=== PATIENT | male | born 1960 | race Caucasian/White ===

== ENCOUNTER 2020-02-20 09:31 | Outpatient (NON) | payer OTHER, SELFPAY ==
[2020-02-20 17:45] LABS: SARS-CoV-2 RNA PCR Negative
== END 2020-02-20 09:32 ==
PROVIDERS: PCP Family Medicine; Visit Provider Family Medicine
DX: Z20.828 Contact with and (suspected) exposure to other viral communicable diseases (principal); M79.10 Myalgia, unspecified site
CPT/HCPCS: 87635; C9803; U0003

== ENCOUNTER → 2020-12-14 05:11 | Outpatient (CLI) | payer OTHER, SELFPAY ==
[2020-12-14 21:10] LABS: SARS-CoV-2 RNA PCR Negative
== END ==
PROVIDERS: PCP Family Medicine; Visit Provider Family Medicine
DX: R68.89 Other general symptoms and signs (principal); Z20.822 Contact with and (suspected) exposure to COVID-19
CPT/HCPCS: C9803; U0003; U0005

== ENCOUNTER 2021-11-14 13:39 | Outpatient (RCR) | payer OTHER, SELFPAY ==
[2021-11-14] MEDS: FAMOTIDINE 20 MG TABLET PO (14:10)
[2021-11-14] MEDS: diphenhydrAMINE HCl CAP 25 MG CAPSULE PO (14:10)
[2021-11-14] MEDS: ACETAMINOPHEN 325 MG TABLET 650 MG PO (14:10)
[2021-11-14 14:13] VITALS: BP 134/73; PULSE 69; TEMP 36.3; O2SAT 100
[2021-11-14] MEDS: BEBTELOVIMAB 175 MG/2 ML VIAL IV PUSH (14:29)
[2021-11-14 15:13] VITALS: BP 117/71; PULSE 58; O2SAT 97
== END 2021-11-14 16:00 ==
LOC: AMCINF 13:39
PROVIDERS: PCP Family Medicine; Referring Provider Family Medicine; Visit Provider Internal Medicine Hematology & Oncology
DX: U07.1 COVID-19 (principal); I25.10 Atherosclerotic heart disease of native coronary artery without angina pectoris
CPT/HCPCS: A9270; M0222; Q0222

== ENCOUNTER 2023-12-07 11:38 | Outpatient (CLI) | payer OTHER, SELFPAY ==
--- NOTE | ~2023-12-07 | CT_ITS ---
EXAMINATION: CT soft tissue neck w con DATE: 12/07/2023 13:22 INDICATION: Dystonia. Left throat and neck pain. TECHNIQUE: Computed tomography (CT) of the neck was performed with 75 mL Omnipaque-350 intravenous co ntrast. Automated exposure control and iterative reconstruction technique were employed. The dose-pily gth product was 457.67 mGy-cm. COMPARISON: None FINDINGS: A calcified right lung nodule and calcified right hilar and mediastinal lymph nodes are con sistent with old granulomatous disease. There is mild mucosal thickening in the paranasal sinuses. Th ere are no pathologically enlarged lymph nodes. There is mild plaque in proximal right internal carot id artery with 0% stenosis relative to normal distal artery lumen diameters. The pharynx and larynx a re normal. There are changes of coronary artery bypass grafting. There is severe cervical spondylosis . IMPRESSION: 1. No specific etiology for the patient's symptoms. Reviewed, dictated and finalized at location A.
[2023-12-07 12:10] LABS: Estimated Glomerular Filt Rate > 60
== END 2023-12-07 11:39 ==
PROVIDERS: PCP Family Medicine; Visit Provider Otolaryngology
DX: K21.9 Gastro-esophageal reflux disease without esophagitis (principal)
CPT/HCPCS: 70491; Q9967